=== PATIENT | female | born 1970 | race Caucasian/White ===

== ENCOUNTER 2016-07-06 06:27 | Emergency (ER) | payer MEDICAID ==
[~2016-07-06] VITALS: Wt 119.0 kg
[~2016-07-06 06:27] MED LIST: ALBU8.5H3 INH; ASPI1TAB2; AZIT250T94 PO; BISM525O9; CETI10CA PO; CIPR500T4 PO; GUAI473L22 PO; IBUP-1542 PO; IBUP400T22 PO; IRON; METR500T PO; MOTRIN; NAPR-688 PO; PSYL1040 PO; TRAM50TA2 PO; VIC
[2016-07-06] MEDS ORDERED: ONDANSETRON 4 MG INJ IV STA (07:46)
[2016-07-06 08:16] LABS: BASOPHILS % 0.5 % (0.0-2.0); EOSINOPHILS # 0.1 10^3/ul (0.0-0.5); EOSINOPHILS % 1.7 % (0.0-7.0); HEMATOCRIT 42.3 % (37.0-47.0); HEMOGLOBIN 14.4 g/dl (12.0-16.0); LYMPHOCYTES # 1.8 10^3/ul (0.8-2.9); LYMPHOCYTES % 28.8 % (15.0-51.0); MEAN CORPUSCULAR HEMOGLOBIN 28.2 pg (29.0-33.0); MEAN CORPUSCULAR HGB CONC 34.1 g/dl (32.0-37.0); MEAN CORPUSCULAR VOLUME 82.7 fl (82.0-101.0); MEAN PLATELET VOLUME 9.3 fl (7.4-10.4); MONOCYTE # 0.3 10^3/ul (0.3-0.9); MONOCYTES % 5.4 % (0.0-11.0); NEUTROPHIL # 3.9 10^3/ul (1.6-7.5); NEUTROPHILS % 63.6 % (39.0-77.0); PLATELET COUNT 235 10^3/UL (140-440); RED BLOOD COUNT 5.11 10^6/ul (4.20-5.40); RED CELL DISTRIBUTION WIDTH 14.4 % (11.5-14.5); UNCORRECTED WBC 6.1 10^3/ul (4.8-10.8); WHITE BLOOD COUNT 6.1 10^3/ul (4.8-10.8)
[2016-07-06 08:18] LABS: CONDITION 1
[2016-07-06 08:22] LABS: ALBUMIN 4.1 g/dl (3.3-4.9); POTASSIUM 4.4 mmol/L (3.5-5.1)
[2016-07-06 08:25] LABS: ALBUMIN/GLOBULIN RATIO 1.32; BILIRUBIN,INDIRECT 0.4 mg/dl (0-1.1); BILIRUBIN,TOTAL 0.4 mg/dl (0.2-1.3); CREATININE 0.5 mg/dl (0.44-1.00); TOTAL PROTEIN 7.2 g/dl (6.1-8.1)
[2016-07-06] MEDS ORDERED: METF500T4 PO (08:35)
--- NOTE | 2016-07-06 08:47 | RADRPT ---
PROCEDURE: US Abdomen. CLINICAL INDICATION: abdominal pain TECHNIQUE: Multiple real-time images were acquired of the patient's right upper quadrant abdomen a nd retroperitoneum utilizing a high resolution transducer. COMPARISON: 08/06/2012 FINDINGS: The liver demonstrates increased echogenicity. The liver is normal in size and no focal solid lesio ns are seen. The liver measures 17 cm in length. The portal vein is patent with normal direction of flow. No intrahepatic biliary dilatation is seen. No gallstones are identified within the gallbladder. There is no pericholecystic fluid or gallbladd er wall thickening. The common bile duct measures 6 mm in maximal dimension. The visualized portions of the pancreas are unremarkable. The tail of the pancreas is not seen. No free fluid is identified. The right kidney is normal in size, and demonstrate normal echogenicity and cortical thickness. The right kidney measures 12 cm in long dimension. There is no evidence of hydronephrosis. There are n o kidney stones. RPTAT: AA IMPRESSION: Mild fatty infiltration of the liver. No evidence of gallstones. .Xavier Jones MD, MD Date Time Electronically viewed and signed by .Xavier Jones MD, on 07/06/2016 08:47 .S/
[2016-07-06] MEDS ORDERED: ONDA4TAB14 PO (09:03)
[2016-07-06] MEDS ORDERED: RANI150T9 PO (09:03)
--- NOTE | 2016-07-06 09:06 | ERD ---
ER Documentation Chief Complaint Date/Time DATE: 07/06/16 TIME: 09:04 Chief Complaint gen weakness and body numbness about 30 min captain cannery tender. high bs per pt HPI This a 45-year-old female complains of 1 hour prior to arrival of having some epigastric and right upper quadrant pain resulting in nausea vomiting 1 this nonbilious nonbloody. She had no chest pain no shortness of breath no diaphoresis no diarrhea no back pain hematuria fever. Patient has no respiratory symptoms. Pain is described as sharp. No history of gallstones. Currently says she feels better and has no pain just feels nauseated ROS All systems reviewed and are negative except as per history of present illness. Medications Home Meds Active Scripts Ranitidine Hcl* (Zantac*) 150 Mg Tablet, 150 MG PO BID Y for EPIGASTRIC PAIN, # 20 TAB Prov:TANA EDWARDS DO 07/06/16 Ondansetron (Ondansetron Odt) 4 Mg Tab.rapdis, 4 MG PO Q6H Y for NAUSEA AND/OR VOMITING, #10 TAB Prov:TANA EDWARDS DO 07/06/16 Reported Medications Metformin* (Glucophage*) 500 Mg Tab, 500 MG PO BID, #30 TAB 07/06/16 Discontinued Reported Medications Bismuth Subsalicylate (Maalox) 525 Mg/15 Ml Oral.susp 08/06/12 Acetaminophen/Hydrocodone (Vicodin) 1 Tab Tab 08/12/11 [Iron] No Conflict Check 08/10/11 [Motrin] No Conflict Check 08/10/11 Aspirin/Acetaminophen/Caffeine (Excedrin Caplet) 1 Tab Tablet 02/12/11 Discontinued Scripts Naproxen* (Naproxen*) 500 Mg Tablet, 500 MG PO BID Y for PAIN, #10 TAB Prov:MIRELA SHIRLEY DO 05/29/16 Ibuprofen* (Motrin*) 400 Mg Tab, 400 MG PO Q6H Y for PAIN AND OR ELEVATED TEMP, #30 TAB Prov:ANATOLIY WELCH NP 03/10/16 Cetirizine Hcl* (Zyrtec*) 10 Mg Capsule, 10 MG PO DAILY, #30 TAB.CHEW Prov:ANATOLIY WELCH NP 03/10/16 Guaifenesin-Codeine Phosphate* (Guaifenesin* AC Cough Syrup) 473 Ml Liquid, 5 ML PO Q4H Y for COUGH, #60 ML Prov:ANATOLIY WELCH NP 03/10/16 Albuterol Sulfate* (Proair HFA*) 8.5 Gm Hfa.aer.ad, 2 PUFF INH Q4H Y for WHEEZING AND SOB, #1 INHALER Prov:ANATOLIY WELCH NP 03/10/16 Tramadol HCl (Tramadol HCl) 50 Mg Tablet, 50 MG PO Q4 Y for PAIN, #20 TAB Prov:KIMO SCHAEFER NP 10/25/15 Psyllium Seed* (Metamucil* Powder) 1,040 Gm Powder, 10 GM PO TID for 14 Days, EA Prov:ARIANNE MCLAUGHLIN MD 07/30/15 Metronidazole* (Flagyl*) 500 Mg Tablet, 500 MG PO BID for 10 Days, TAB Prov:ARIANNE MCLAUGHLIN MD 07/30/15 Tramadol HCl (Tramadol HCl) 50 Mg Tablet, 50 MG PO Q4 Y for PAIN, #20 TAB Prov:ARIANNE MCLAUGHLIN MD 07/30/15 Ciprofloxacin Hcl* (Ciprofloxacin Hcl*) 500 Mg Tablet, 500 MG PO BID for 10 Days , TAB Prov:ARIANNE MCLAUGHLIN MD 07/30/15 Ibuprofen* (Ibuprofen*) 600 Mg Tablet, 600 MG PO Q6, #20 TAB Prov:YASEMIN MARTIN PA-C 04/10/15 Azithromycin* (Zithromax*) 250 Mg Tablet, 250 MG PO .SANTINO DIRECTED, #6 TAB TAKE 500 MG (2 TABS) THE FIRST DAY THEN 250 MG (1 TAB) DAYS 2-5 Prov:YASEMIN MARTIN PA-C 04/10/15 Allergies Allergies: Coded Allergies: morphine (Verified Allergy, Unknown, vomiting, 05/29/16) PMhx/Soc Medical and Surgical Hx: pt denies Surgical Hx History of Surgery: Yes () Anesthesia Reaction: No Hx Neurological Disorder: No Hx Respiratory Disorders: No Hx Cardiac Disorders: Yes (HTN) Hx Psychiatric Problems: No Hx Miscellaneous Medical Probl: Yes (DM) Hx Alcohol Use: No Hx Substance Use: No Hx Tobacco Use: No Smoking Status: Never smoker FmHx Family History: No coronary disease Physical Exam Vitals Vital Signs Date Time Temp Pulse Resp B/P Pulse Ox O2 Delivery O2 Flow Rate FiO2 07/06/16 07:30 98.0 62 16 125/70 96 Room Air 07/06/16 06:31 98.5 75 21 167/79 99 Physical Exam Const: Well-developed, well-nourished Head: Atraumatic, normocephalic Eyes: Normal Conjunctiva, PERRLA, EOMI, normal sclera, no nystagmus ENT: Normal External Ears, Nose and Mouth, moist mucus membranes. Neck: Full range of motion. No meningismus, no lymphadenopathy. Resp: Clear to auscultation bilaterally, no wheezing, rhonchi, rales Cardio: Regular rate and rhythm, no murmurs, S1 S2 present Abd: Soft, mild epigastric tenderness, non distended. Normal bowel sounds, no guarding or rebound, no pulsitile abdominal masses or bruits Skin: No petechiae or rashes, no ecchymosis , no maculopapular rash Back: No midline or flank tenderness Ext: No cyanosis, or edema, FROM x 4, normal inspection, neurovascularly intact x 4 Neur: Awake and alert, STR 5/5 x 4, sensation intact x 4, no focal findings, cerebellum intact Psych: Normal Mood and Affect Result Diagram: 07/06/16 0750 07/06/16 0750 Results 24 hrs Laboratory Tests Test 07/06/16 06:39 07/06/16 07:50 Bedside Glucose 156mg/dL Alanine Aminotransferase (ALT/SGPT) 51IU/L Albumin 4.1g/dl Albumin/Globulin Ratio 1.32 Alkaline Phosphatase 79IU/L Anion Gap 17 Aspartate Amino Transf (AST/SGOT) 27IU/L Basophils # 0.010^3/ul Basophils % 0.5% Beta HCG, Quantitative < 2.4mIU/ml Blood Morphology Comment Blood Urea Nitrogen 12mg/dl Calcium Level 9.0mg/dl Carbon Dioxide Level 27mmol/L Chloride Level 102mmol/L Creatinine 0.50mg/dl Direct Bilirubin 0.00mg/dl Eosinophils # 0.110^3/ul Eosinophils % 1.7% Globulin 3.10g/dl Glucose Level 142mg/dl Hematocrit 42.3% Hemoglobin 14.4g/dl Indirect Bilirubin 0.4mg/dl Lipase 144U/L Lymphocytes # 1.810^3/ul Lymphocytes % 28.8% Mean Corpuscular Hemoglobin 28.2pg Mean Corpuscular Hemoglobin Concent 34.1g/dl Mean Corpuscular Volume 82.7fl Mean Platelet Volume 9.3fl Monocytes # 0.310^3/ul Monocytes % 5.4% Neutrophils # 3.910^3/ul Neutrophils % 63.6% Nucleated Red Blood Cells # 0.010^3/ul Nucleated Red Blood Cells % 0.0/100WBC Platelet Count 91713^3/UL Potassium Level 4.4mmol/L Red Blood Count 5.1110^6/ul Red Cell Distribution Width 14.4% Sodium Level 142mmol/L Total Bilirubin 0.4mg/dl Total Protein 7.2g/dl White Blood Count 6.110^3/ul Current Medications Medications (Trade) Dose Ordered Sig/Yajaira Route PRN Reason Start Time Stop Time Status Last Admin Dose Admin Ondansetron HCl (Zofran Inj) 4 mg ONCE STAT IV 07/06/16 07:46 07/06/16 07:47 DC 07/06/16 08:00 Procedures/MDM PROCEDURE: US Abdomen. CLINICAL INDICATION: abdominal pain TECHNIQUE: Multiple real-time images were acquired of the patient's right upper quadrant abdomen and retroperitoneum utilizing a high resolution transducer. COMPARISON: 08/06/2012 FINDINGS: The liver demonstrates increased echogenicity. The liver is normal in size and no focal solid lesions are seen. The liver measures 17 cm in length. The portal vein is patent with normal direction of flow. No intrahepatic biliary dilatation is seen. No gallstones are identified within the gallbladder. There is no pericholecystic fluid or gallbladder wall thickening. The common bile duct measures 6 mm in maximal dimension. The visualized portions of the pancreas are unremarkable. The tail of the pancreas is not seen. No free fluid is identified. The right kidney is normal in size, and demonstrate normal echogenicity and cortical thickness. The right kidney measures 12 cm in long dimension. There is no evidence of hydronephrosis. There are no kidney stones. RPTAT: AA IMPRESSION: Mild fatty infiltration of the liver. No evidence of gallstones. .Xavier Jones MD, Date Time Electronically viewed and signed by .Xavier Jones MD, on 07/06/2016 08: 47 .S/ CC: TANA EDWARDS DO Patient has no nausea. No evidence of gallstones. Patient may have had a biliary colic attack or gastritis possibly a bad food last night Do not feel this is cardiac Patient says she feels back to normal now. We will discharge home with Zofran and Zantac Departure Diagnosis: Primary Impression: Nausea & vomiting Vomiting type: unspecified Vomiting Intractability: non-intractable Qualified Code: R11.2 - Non-intractable vomiting with nausea, unspecified vomiting type Additional Impression: Epigastric pain Condition: Stable Patient Instructions: Nausea and Vomiting-Adult, Epigastric Pain (Uncertain Cause) TANA EDWARDS DO Jul 06, 2016 09:06
[2016-07-06 09:35] VITALS: BP 103/70; PULSE 63; RESP 18; TEMP 98
== END 2016-07-06 09:30 | disposition home or self-care (01) ==
LOC: E/R 06:27
DX: R11.2 Nausea with vomiting, unspecified (principal); R10.13 Epigastric pain; I10 Essential (primary) hypertension; E11.9 Type 2 diabetes mellitus without complications; Z79.84 Long term (current) use of oral hypoglycemic drugs
CPT/HCPCS: 36415; 76705; 80053; 82962; 83690; 84702; 85025; 96374; J2405; Z7502; Z7610